=== PATIENT | male | born 1970 ===

== ENCOUNTER 2021-05-23 20:39 | Observation (INO) ==
[2021-05-23] MEDS ORDERED: PIPERACILL/TAZOBAC CONSULT ACTIVE PRN (21:56)
[2021-05-23] MEDS ORDERED: PIPERACILLIN/TAZOBACTAM 4.5 GM/120 ML BAG IV ONE (21:56)
--- NOTE | 2021-05-23 22:05 | Emergency Department Note ---
History of Present Illness General Chief complaint: Infection Stated complaint: INFECTION Time Seen by Provider: 05/23/21 21:44 History of Present Illness Maximum Pain Intensity: 9 50-year-old male presents to the ED with a chief complaint of rectal pain. He states that 3 to 4 months ago he was diagnosed with a abscess in that area. It spontaneously drained at some point. He states that initially they tried to drain it in the ED and were unable to do so. He then saw specialist a while later but before seeing the specialist it spontaneously ruptured. The patient states that he started having pain again today. He decided to stop to the ED on the way through the area. 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 He is currently traveling from [place] to [place]. Denies fevers, nausea vomiting or other complaints Past Med/Surg History Social History Smoking Status: Never smoker Preferred Language: Guyanese Review of Systems A total of 10 systems reviewed and were otherwise negative Physical Exam Vital Signs Vital Signs - 24 hr 05/23/21 20:49 05/23/21 23:59 05/24/21 00:58 Temperature 36.7 C Temperature Source Temporal Artery Scan Pulse Rate 120 H Pulse Rate [Right Radial] 89 90 Pulse Rhythm [Right Radial] Regular Regular Pulse Strength [Right Radial] Normal Normal Respiratory Rate 16 17 20 Respiratory Effort / Characteristics Non-Labored Non-Labored Spontaneous Non-Labored Spontaneous Respiratory Depth Normal Normal Normal Respiratory Pattern Regular Regular Regular Blood Pressure 145/87 H Blood Pressure [Right Arm] 127/76 134/73 Blood Pressure Mean 106 Blood Pressure Mean [Right Arm] 93 93 Blood Pressure Position Sitting Blood Pressure Position [Right Arm] Lying Lying Pulse Oximetry 97 97 97 Oxygen Delivery Method Room Air Room Air Room Air Sepsis Recent Fever Within 48 Hours No Sepsis New/Unexplained Change in Mental Status N/A Sepsis Action Taken by Nursing No Action Required CONSTITUTIONAL/VITAL SIGNS: Reviewed / noted above. GENERAL: Non-toxic in appearance. INTEGUMENTARY: Warm, dry, and [place]. HEAD: Normocephalic. EYES: without scleral icterus or trauma. ENT/OROPHARYNX: clear and moist. LYMPHADENOPATHY/NECK: Is supple without lymphadenopathy or meningismus. RESPIRATORY: Clear to auscultation bilaterally. No increased work of breathing. CARDIOVASCULAR: Regular rate and rhythm. GI/ABDOMEN: Soft and nontender. No organomegaly or pulsatile mass. EXTREMITIES: Warm and well perfused. BACK: No CVA tenderness. NEUROLOGICAL: Intact without focal deficits. PSYCHIATRIC: normal affect. MUSCULOSKELETAL: Normally developed with good muscle tone. RECTAL: The patient does have a small mass in the posterior rectal region. It does not appear to be full but seems slightly fluctuant as if there is a fluid- filled sac there. Subjectively tender on exam. Not erythematous. TRIAGE NURSING DOCUMENTATION REVIEWED. Course Administered Medications Discontinued Medications Piperacillin Sod/Tazobactam Sod (Zosyn) 4.5 gm in 120 mls @ 240 mls/hr IV NOW ONE Stop: 05/23/21 22:25 Last Infusion: 05/23/21 22:48 Dose: 0 mls/hr Documented by: [id number] Admin: 05/23/21 22:12 Dose: 240 mls/hr Documented by: [id number] Ioversol (Optiray 320 100ml) 93 ml IV ONCE ONE Stop: 05/23/21 23:17 Last Admin: 05/23/21 23:16 Dose: 93 ml Documented by: [id number] Ketorolac Tromethamine (Ketorolac 30 Mg/Ml Vial) 30 mg IV NOW STA Stop: 05/23/21 22:28 Last Admin: 05/23/21 23:04 Dose: 30 mg Documented by: [id number] Medical Decision Making Differential Diagnosis Cellulitis, abscess, MRSA infection, DVT, necrotizing fasciitis, dermatitis, drug eruption, allergic reaction, as well as other pathologies. Medical Records Attestation: I reviewed the patient's medical records. Home Medications Current Medication List: was personally reviewed by me Laboratory Data Attestation: I reviewed the patient's lab results. Result diagrams: 05/23/21 22:10 05/23/21 22:10 Lab Results 05/23/21 05/23/21 05/23/21 Range/Units 22:10 22:10 22:10 WBC 10.83 H (4.8-10.8) K/uL RBC 5.49 (4.7-6.1) M/uL Hgb 16.5 (14.0-18.0) g/dL Hct 46.2 (42-52) % MCV 84.2 (80-100) fL MCH 30.1 (25-34) pg MCHC 35.7 (32-36) g/dL RDW Std Deviation 39.4 (36.4-46.3) fL RDW Coeff of Damaris 13.0 (11.5-14.5) % Plt Count 180 (130-400) K/uL MPV 11.0 H (7.4-10.4) fL Immature Gran % (Auto) 0.3 % Neut % (Auto) 72.3 % Lymph % (Auto) 15.6 % [place] % (Auto) 10.9 % Eos % (Auto) 0.6 % Baso % (Auto) 0.3 % Neut # (Auto) 7.84 H (1.4-6.5) K/uL Lymph # (Auto) 1.69 (1.2-3.4) K/uL [place] # (Auto) 1.18 H (0.11-0.59) K/uL Eos # (Auto) 0.06 (0-0.5) K/uL Baso # (Auto) 0.03 (0-0.2) K/uL Immature Gran # (Auto) 0.03 H (0.00-0.02) K/uL ESR 45 H (0-15) mm/hr Sodium 136 (136-145) mmol/L Potassium 3.9 (3.5-5.1) mmol/L Chloride 104 (98-107) mmol/L Carbon Dioxide 26 (21-32) mmol/L Anion Gap 6.0 (3-11) BUN 23 H (7-18) mg/dl Creatinine 1.13 (0.6-1.4) mg/dl Est Cr Clr Drug Dosing Not Reportable Est GFR ( Amer) 88.0 ml/min Est GFR (Non-Af Amer) 75.9 ml/min BUN/Creatinine Ratio 20.6 H (10-20) Glucose 135 H (70-99) mg/dl Calcium 9.9 (8.5-10.1) mg/dl C-Reactive Protein 11.80 H (0-0.29) mg/dl COVID-19 Eval Order 05/24/21 Range/Units 00:49 WBC (4.8-10.8) K/uL RBC (4.7-6.1) M/uL Hgb (14.0-18.0) g/dL Hct (42-52) % MCV (80-100) fL MCH (25-34) pg MCHC (32-36) g/dL RDW Std Deviation (36.4-46.3) fL RDW Coeff of Damaris (11.5-14.5) % Plt Count (130-400) K/uL MPV (7.4-10.4) fL Immature Gran % (Auto) % Neut % (Auto) % Lymph % (Auto) % [place] % (Auto) % Eos % (Auto) % Baso % (Auto) % Neut # (Auto) (1.4-6.5) K/uL Lymph # (Auto) (1.2-3.4) K/uL [place] # (Auto) (0.11-0.59) K/uL Eos # (Auto) (0-0.5) K/uL Baso # (Auto) (0-0.2) K/uL Immature Gran # (Auto) (0.00-0.02) K/uL ESR (0-15) mm/hr Sodium (136-145) mmol/L Potassium (3.5-5.1) mmol/L Chloride (98-107) mmol/L Carbon Dioxide (21-32) mmol/L Anion Gap (3-11) BUN (7-18) mg/dl Creatinine (0.6-1.4) mg/dl Est Cr Clr Drug Dosing Est GFR ( Amer) ml/min Est GFR (Non-Af Amer) ml/min BUN/Creatinine Ratio (10-20) Glucose (70-99) mg/dl Calcium (8.5-10.1) mg/dl C-Reactive Protein (0-0.29) mg/dl COVID-19 Eval Order Covid19 at [facility] Imaging Data Radiologist's Impression: CT scan of the pelvis with IV contrast shows a abscess in the subcutaneous adipose tissue of the left gluteal crease at the 5 o'clock position with respect to the anus. MDM Narrative Patient presents with some pain near his rectum concerned about an abscess. Vit al signs reveal tachycardia and hypertension. 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 The patient's CBC and chemistry panel was unremarkable. CT scan does show an abscess. Sed rate and CRP are elevated. The surgery service was consulted. They are going to take the patient to the OR tomorrow for drainage. Impression & Plan Rosalie-rectal abscess Discharge Plan Visit Data Chief Complaint: Infection Stated Complaint: INFECTION ED Provider: Kenneth Horta Discharge Problem: Rosalie-rectal abscess Patient Disposition: Being Evaluated by Surgeon Forms Stand Alone Forms: [facility] Referrals Referrals: PCP,NO [Primary Care Provider] -
[2021-05-23 22:27] LABS: Basophils # (auto) 0.03 K/uL (0-0.2); Basophils % (auto) 0.3 %; Eosinophils # (auto) 0.06 K/uL (0-0.5); Eosinophils % (auto) 0.6 %; Hematocrit (blood only) 46.2 % (42-52); Hemoglobin 16.5 g/dL (14.0-18.0); Immature Granulocytes # (auto) 0.03 K/uL (0.00-0.02); Immature Granulocytes % (auto) 0.3 %; Lymphocytes # (auto) 1.69 K/uL (1.2-3.4); Lymphocytes % (auto) 15.6 %; Mean Corpuscular Hemoglobin 30.1 pg (25-34); Mean Corpuscular Hgb Conc 35.7 g/dL (32-36); Mean Corpuscular Volume 84.2 fL (80-100); Monocytes # (auto) 1.18 K/uL (0.11-0.59); Monocytes % (auto) 10.9 %; Neutrophils # (auto) 7.84 K/uL (1.4-6.5); Neutrophils % (auto) 72.3 %; Platelet Count 180 K/uL (130-400); RDW Standard Deviation 39.4 fL (36.4-46.3); Red Blood Count 5.49 M/uL (4.7-6.1); White Blood Count 10.83 K/uL (4.8-10.8)
[2021-05-23] MEDS ORDERED: KETOROLAC 30 MG/ML VIAL IV STA (22:27)
[2021-05-23 22:43] LABS: BUN Creatinine Ratio 20.6 (10-20); Blood Urea Nitrogen 23 mg/dl (7-18); Calcium 9.9 mg/dl (8.5-10.1); Carbon Dioxide 26 mmol/L (21-32); Chloride 104 mmol/L (98-107); Est GFR (Non-African American) 75.9 ml/min; Glucose 135 mg/dl (70-99); Potassium 3.9 mmol/L (3.5-5.1); Sodium 136 mmol/L (136-145)
[2021-05-23] MEDS ORDERED: OPTIRAY 320 100ml IV ONE (23:16)
--- NOTE | 2021-05-24 00:52 | History & Physical Report ---
Date of Service May 24, 2021 Assessment & Plan (1) Perirectal abscess: Plan: Patient will be admitted to the hospital proceeding as follows: We will make the patient n.p.o. Provide analgesics Provide antiemetics Hydration with IV fluids We will continue antibiotics in the form of Zosyn As the patient has had a previous perirectal abscess with attempted bedside drainage I feel it is prudent to proceed with a more formal drainage in the operating room where we can provide the patient with sedation and local anesthesia. We will proceed with this in the morning. The patient is agreeable to this. As we are planning on taking patient to the operating room we will check a baseline chest x-ray as well as a baseline EKG. 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 emergency department. Patient relates that back in January of this year he experienced similar pain and he presented to the hospital along a truck route that he forgets the name of. He says that there was an attempted incision and drainage of a perirectal abscess at bedside which was unsuccessful. He notes that the perirectal abscess causing pain ultimately "ruptured" and drained on its own and the patient had significant relief of his presenting symptoms at that time. 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 He does not note any palliative factors other than lying still and he does not note any radiation of the pain. He denies any fevers, shakes, chills. Because of his previous history of perirectal abscess he presented to the nearest emergency department And to be [facility] along his truck route. In the emergency department the patient did have labs and imaging which I independently reviewed. Patient was noted to have a thick-walled enhancing fluid collection with an air-fluid level in the left gluteal crease around the 5 o'clock position that was felt to be compatible with an abscess. There is no intrapelvic or intra-abdominal abscess noted. Patient also had a CBC where his white blood cell count of slight elevation at 10.8. His hemoglobin, hematocrit, and platelet count are all within normal range. Chemistry profile did show sodium, potassium, and creatinine were within normal range. An erythrocyte sedimentation rate was elevated at 45 and a C-reactive protein was elevated at 11.8. Patient says that his only medical history consists of diabetes which he says is well controlled. He says that in addition to driving his truck he is quite active when he is feeling well and he does not get any chest pain or shortness of breath with his activities of daily living. He does note a history of smoking. At the time of my interview he was resting comfortably in bed and he was not in any distress. Allergies Allergy/AdvReac Type Severity Reaction Status Date / Time No Known Allergies Allergy Unverified 05/24/21 02:48 Past Med/Surg History Medical History (Updated 05/24/21 @ 06:42 by Stanley Vang MD) Diabetes Social History Smoking Status: Current every day smoker Do You Dip or Chew Tobacco: No; Tobacco Cessation Education Requested by Patient: No Hx Alcohol Use: No Hx Substance Use: No Preferred Language: Thai Communication Ability: Effective Pot Firer Required: No Beliefs That Will Affect Care: None Current Living Situation: Family Other Information That Helps Us Care for You: No Feels Safe at Home: Yes Safety Concerns: Feels Safe At This Time Assistive Devices: None Past Medical History PMFSH Narrative: Past medical history: Perirectal abscess Diabetes Past surgical history: Attempted drainage of perirectal abscess at bedside Family history: He does not note family history of premature coronary artery disease Social history: The patient says he is an occasional smoker Review of Systems Constitutional: no fever and no chills Eyes: no diplopia Ear, Nose, Mouth, Throat: no ear pain and no sore throat Respiratory: no cough and no dyspnea Cardiovascular: no chest pain Gastrointestinal: as per Subjective / HPI; no abdominal pain, no diarrhea/loose stools and no blood in stools Genitourinary: no dysuria Musculoskeletal: no back pain Integumentary: no rash Neurologic: no localized weakness Physical Exam Constitutional: well developed and well nourished; no acute distress Eyes: PERRL, conjunctivae normal, anicteric sclerae ENMT: external ear and nose normal, oropharynx normal Neck: trachea midline Respiratory: normal respiratory effort; no respiratory distress and no labored breathing Cardiovascular: Rate/Rhythm: regular rate and regular rhythm Gastrointestinal (Abdomen): Abdomen is soft, nontender and nondistended. Patient's rectum was examined. Patient did have a tender area just lateral to the rectum at approximately the 5 o'clock position. This area had some fluctuance noted to and was tender to palpation. There is no drainage or open areas. The area was not warm but did exhibit some slight erythema. Musculoskeletal: No gross orthopedic abnormalities, no calf tenderness Skin: no rashes Neurologic: moves all extremities Psychiatric: A+Ox3, euthymic affect Results & Data Results & Data ([facility]) Vital Signs (Past 12 Hours) Vital Signs Temp Pulse Pulse Resp BP BP Pulse Ox 05/23/21 23:59 89 17 127/76 97 05/23/21 20:49 36.7 C 120 H 16 145/87 H 97 Code Status & VTE Plan VTE Prophylaxis Plan VTE Prophylaxis will be ordered: Yes PG Care Time/CCT Total # of Minutes Spent Total Time Spent with Patient: Total time spent is greater than 50% in coordination of care (as documented) at patient's floor/unit and/or counseling patient: Coding Level of Care Code INT OBSERVATION CARE 70M LVL 3 Diagnoses Perirectal abscess K61.1
[2021-05-24] MEDS ORDERED: PIPERACILL/TAZOBAC CONSULT ACTIVE PRN (02:51)
[2021-05-24] MEDS ORDERED: ONDANSETRON INJ 2 MG/ML 2 ML VIAL IV PRN ×2 (02:51→07:15)
[2021-05-24] MEDS ORDERED: MoRPHine SULFATE 2 MG/ML CARP IV PRN (02:51)
[2021-05-24] MEDS ORDERED: ACETAMINOPHEN 1,000 MG/100 ML VIAL IV PRN (02:51)
[2021-05-24] MEDS: LACTATED RINGER'S 1,000 ML IV SCH ×2 (04:01→12:54)
[2021-05-24] MEDS: PIPERACILLIN/TAZOBACTAM 3.375 GM in DEXTROSE 5% 100 ML IV SCH ×3 (04:16→21:00)
--- NOTE | 2021-05-24 06:07 | Surgery Progress Note ---
Date of Service May 24, 2021 Assessment & Plan (1) Rosalie-rectal abscess: Plan: Patient has been admitted on the surgical service proceeding as follows: Continue n.p.o. status Continue antibiotics in the form of Zosyn Continue analgesics Continue antiemetics Continue gentle hydration with IV fluids We are planning on incision and drainage of the perirectal abscess in the operating room later today. Additional recommendations concerning his abscess will be based on his operative findings Patient has had a preoperative chest x-ray that shows no evidence of pneumonia The patient has had a preoperative EKG that shows normal sinus rhythm without any acute ischemic changes A Covid test has been performed and is noted to be negative SCDs will be used for DVT prevention, we will avoid chemical means due to upcoming surgery Additional recommendations were made based on operative findings as well as the patient's clinical course as it unfolds as above. had similar incident in January. discussed options. will proceed this AM with I&D of perirectal abcess. questions answered. Admission and Anticipated Discharge Date Admission Date: May 24, 2021 Subjective Patient is resting in bed. He denies any fevers, shakes, chills. He does note continued rectal pain similar to what he noted at time of admission. Results & Data ([facility]) Vital Signs (Past 12 Hours) Vital Signs Temp Pulse Pulse Resp BP BP Pulse Ox 05/24/21 02:35 36.4 C L 88 18 137/85 97 05/24/21 02:20 78 17 135/79 98 05/24/21 00:58 90 20 134/73 97 05/23/21 23:59 89 17 127/76 97 05/23/21 20:49 36.7 C 120 H 16 145/87 H 97 PG Care Time/CCT Total # of Minutes Spent Total Time Spent with Patient: Total time spent is greater than 50% in coordination of care (as documented) at patient's floor/unit and/or counseling patient: Coding Level of Care Code 17612 Subseq Obs Care Lvl 2 Diagnoses Rosalie-rectal abscess K61.1
--- NOTE | 2021-05-24 06:41 | Anesthesiology Consultation ---
Date of Service May 24, 2021 Assessment & Plan (1) Encounter for pre-operative examination: Chart Review Chart Review: Acceptable Risk for Surgery and Patient NOT seen in Pre Admission Testing covid neg 05/24/21 Consults Requested none ASA ASA2 Proposed Anesthesia Anesthesia Type: General Risk / Benefits Reviewed With: PT / POA / Parent / Guardian, Accepts Plan and Informed Consent Obtained History Surgery Operation Date: 05/24/21 10:00 Proposed Procedures p Incision and Drainage General - Leon Odonnell DO Height/Weight Height: 5 ft 10 in Weight: 104 kg Allergies Allergy/AdvReac Type Severity Reaction Status Date / Time No Known Allergies Allergy Unverified 05/24/21 02:48 Medications Active Medications Generic Name Dose Route Start Last Admin Trade Name Freq PRN Reason Stop Dose Admin Piperacillin Sod/Tazobactam 115 mls @ 28.75 mls/hr 05/24/21 04:00 05/24/21 08:02 Sod 3.375 gm/ Dextrose IV 06/03/21 03:59 Infused Q8H MARIANA Infusion Protocol Lactated Ringer's 1,000 mls @ 75 mls/hr 05/24/21 02:51 05/24/21 04:01 Lr IV 06/23/21 02:50 75 mls/hr .[id number] MARIANA Administration Morphine Sulfate 2 mg 05/24/21 02:51 05/24/21 05:38 Morphine Sulfate 2 Mg/Ml Carp IV 06/07/21 02:50 2 mg Q3H PRN Administration Pain NPO Date Last Intake of Fluids: 05/24/21 Time Last Intake of Fluids: 00:00 Date Last Intake of Solids: 05/24/21 Time Last Intake of Solids: 00:00 Past Medical History Medical History Diabetes Exercise / Class Metabolic Activity II 4-5 Yardwork/Stairs/Walk up hill Past Anesthesia History No Hx of Anesthesia Complications and No Family Hx of Anesthesia Complications History of PONV No Hx of PONV and No Hx of Motion Sickness Social History Smoking Status: Current every day smoker tobacco type: cigarettes Do You Dip or Chew Tobacco: No Hx Alcohol Use: No Hx Substance Use: No Physical Exam Vital Signs Last Vital Signs Temp 98.4 F 05/24/21 07:25 Pulse 90 05/24/21 07:25 Resp 18 08/28/21 07:25 BP 150/90 H 05/24/21 07:25 Pulse Ox 97 05/24/21 07:25 ENMT Mouth: no dentition abnormality Thyromental Distance: > or= 3.5 Finger Breadths Mallampati Class: II Neck normal visual inspection Respiratory normal respiratory effort Auscultation: lungs clear to auscultation bilaterally Cardiovascular Rate/Rhythm: regular rate and regular rhythm Testing Laboratory Results 05/23/21 22:10 05/23/21 22:10 Electrocardiogram Date: 05/24/21 Findings: + NSR @ (86) Normal sinus rhythm Normal ECG No previous ECGs available
[2021-05-24] MEDS ORDERED: fentaNYL citrate 100 MCG/2 ML VIAL IV PRN (07:15)
[2021-05-24] MEDS ORDERED: ATROPINE SULFATE 0.1 MG/ML 10ML SYR IV PRN (07:15)
[2021-05-24] MEDS ORDERED: ePHEDrine sulfate 50 MG/ML AMP IV PRN (07:15)
--- NOTE | 2021-05-24 08:05 | CT Scan Report ---
CT SCAN OF THE PELVIS WITH IV CONTRAST CLINICAL HISTORY: Perianal abscess. COMPARISON STUDY: No priors. TECHNIQUE: Following the IV administration of 93 cc of Optiray 320, CT scan of the pelvis is performe d from the pelvic inlet to the proximal femora. Images are reviewed in the axial, sagittal, and coron al planes. IV contrast was administered without complication. A dose lowering technique was utilized adhering to the principles of ALARA. CT DOSE: 1004.88 mGy.cm FINDINGS: The bladder, prostate, and seminal vesicles are normal as visualized. No pelvic sidewall or inguinal adenopathy is identified. The visualized loops of small bowel and colon are normal in caliber. There is no evidence of obstruction. A normal appendix is identified. The iliac vessels are patent noting m ild but age advanced atherosclerotic calcification. There is a thick walled left perianal gas and flu id containing collection, best seen on axial image #125. This is at the 4:00 to 6:00 position and levar sures 2.8 x 4.3 x 2.1 cm. This is consistent with an abscess, and some of the fluid may be contained within a perianal fistulous tract as this collection extends posteriorly along the gluteal crease. Th ere is significant surrounding soft tissue inflammation and overlying dermal thickening consistent wi th cellulitis. This is located below the levator musculature. The bony pelvis is intact. No lytic or blastic lesion is seen. The regional musculature is normal and symmetric. IMPRESSION: 1. Large left perianal abscess as detailed above with evidence of surrounding cellulitis. 2. Some of the fluid may be contained within a fistulous tract, as the collection extends posteriorly along the gluteal crease and closely approximates the dermal surface. 3. The pelvic viscera is normal as imaged. ACT 112: Negative or not required by law. Electronically signed by: Adam Cárdenas M.D. 05/24/2021 8:03 AM
[2021-05-24] MEDS ORDERED: MIDAZOLAM HCL 1 MG/ML 2ML VIAL ONE (08:06)
[2021-05-24] MEDS ORDERED: fentaNYL citrate 100 MCG/2 ML VIAL ONE (08:06)
[2021-05-24] MEDS ORDERED: PROPOFOL IV EMULSION 10 MG/ML 20 ML VIAL IV ONE (08:52)
[2021-05-24] MEDS ORDERED: DEXAMETHASONE SOD INJ 4 MG/ML VIAL ONE (08:52)
[2021-05-24] MEDS ORDERED: LIDOCAINE 2% 2 ML VIAL/AMP(20MG/ML) INFIL ONE (08:52)
[2021-05-24] MEDS ORDERED: ONDANSETRON INJ 2 MG/ML 2 ML VIAL ONE (08:52)
--- NOTE | 2021-05-24 09:07 | XRay Report ---
XR chest 1V portable HISTORY: Perianal abscess. pre-op COMPARISON: None. FINDINGS: The lungs are clear. Cardiac silhouette is normal in size. No pleural effusions. No pneumot horax. IMPRESSION: No acute process. ACT 112: Negative or not required by law. Electronically signed by: Trey Bruno M.D. 05/24/2021 9:06 AM
[2021-05-24] MEDS ORDERED: KETOROLAC 30 MG/ML VIAL ONE (09:25)
--- NOTE | 2021-05-24 09:43 | Operative Report ---
PG Post Operative Report Pre & Post Diagnosis Operation Date: 05/24/21 10:00 Pre-Op Diagnosis: JAYE-RECTAL ABSCESS Post-Op Diagnosis: JAYE-RECTAL ABSCESS I identified the patient and participated in the time-out.: Yes Procedure Operation Date: 05/24/21 10:00 Actual Procedures p Incision and Drainage Jaye-Rectal Abscess(Not Applicable) - Leon Odonnell DO Surgeon Leon Odonnell DO Pump And Blower Operator n/a Estimated Blood Loss 10 Findings Consistent with Post-Op Diagnosis Specimens abcess fluid for culture Description of Procedure After informed consent was obtained the patient was taken to the operating room and placed in supine position. After successful placement of laryngeal mask airway the patient was placed in a high lithotomy position. The perianal area and perineum were all sterilely prepped and draped with a Betadine solution. A 15 blade scalpel was then used to make an incision directly over the visible and palpable abscess. Immediately a large amount of purulent foul-smelling fluid was encountered. I was able to manually express this. A specimen was collected and sent for Gram stain culture and sensitivity. It was then thoroughly irrigated. I placed 1/2 inch Pio drain into the cavity and secured it to the skin using 2-0 Prolene. Sterile dressing was applied. The patient was placed back in the supine position extubated and transferred recovery in stable condition. I attest to the content of the Intraoperative Record and any orders documented therein. Any exceptions are noted below.
--- NOTE | 2021-05-24 10:31 | Anesthesiology Progress Note ---
Date of Service May 24, 2021 Anesthesia Post Procedure Vital Signs Vital Signs: Temp Pulse Pulse Pulse Resp BP BP 05/24/21 10:15 98.6 F 81 18 125/72 05/24/21 10:05 81 15 115/72 05/24/21 09:55 84 16 114/70 05/24/21 09:45 71 17 95/62 L 05/24/21 09:37 99.1 F 67 16 95/62 L 05/24/21 07:25 98.4 F 90 18 150/90 H 05/24/21 02:35 97.5 F L 88 18 137/85 05/24/21 02:20 78 17 135/79 05/24/21 00:58 90 20 134/73 05/23/21 23:59 89 17 127/76 05/23/21 20:49 98.1 F 120 H 16 145/87 H Pulse Ox 05/24/21 10:15 95 05/24/21 10:05 99 05/24/21 09:55 99 05/24/21 09:45 98 05/24/21 09:37 97 05/24/21 07:25 97 05/24/21 02:35 97 05/24/21 02:20 98 05/24/21 00:58 97 05/23/21 23:59 97 05/23/21 20:49 97 Pain Intensity Medial Rectal: Pain Intensity: 0 Transfer of Care Handoff Completed per policy Notes Mental Status: alert / awake / arousable and participated in evaluation Patient Amnestic to Procedure: Yes Nausea / Vomiting: adequately controlled Pain: adequately controlled Airway Patency, RR, SpO2: stable & adequate BP & HR: stable & adequate Hydration State: stable & adequate Anesthetic Complications: no major complications apparent and Pt Satisfied with anesthetic care
[2021-05-24] MEDS ORDERED: oxyCODONE HCL IR 5 MG TAB (IMMEDIATE RELEASE) PO PRN (10:37)
[2021-05-24 13:24] LABS: Estimated Average Glucose 137 mg/dl; Hemoglobin A1C 6.4 % (4.5-5.6)
--- NOTE | 2021-05-24 14:36 | Hospitalist Consultation ---
Date of Consultation May 24, 2021 Assessment & Plan (1) Diabetes: (2) Rosalie-rectal abscess: 50 y/o M Hx DM II only, admitted by surgery for I&D of a rectal abscess. He has no complaints post-op. A medical consult is requested as the pt is diabetic. On review of records, a recent A1C was 6.4, and his blood glucose has ranged between 130-150 indicating excellent control on Metformin only. 1) DM II - As the pt's glucose is well-controlled, no further management is needed. He should resume his Metformin and an appropriate diet. 2) He is well aware that he should stop smoking. The medical service will now sign off. 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 Total time for this consult including review of surgery notes, labs, meds, imaging, records - discussion/exam with pt - 28 min History of Present Illness Reason for Consultation: Diabetes? Requesting Physician: Blas Attending Physician: Leon Odonnell DO History of Present Illness 50 y/o M Hx DM II only, admitted by surgery for I&D of a rectal abscess. He has no complaints post-op. A medical consult is requested as the pt is diabetic. On review of records, a recent A1C was 6.4, and his blood glucose has ranged between 130-150 indicating excellent control on Metformin only. 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 Family: Mother COVID-19 Father - [place] Allergies Allergy/AdvReac Type Severity Reaction Status Date / Time No Known Allergies Allergy Unverified 05/24/21 02:48 Patient History Medical History Diabetes Social History Smoking Status: Current every day smoker Do You Dip or Chew Tobacco: No; Tobacco Cessation Education Requested by Patient: No Hx Alcohol Use: No Hx Substance Use: No Preferred Language: American Communication Ability: Effective Dye Feeder Required: No Beliefs That Will Affect Care: None Current Living Situation: Family Other Information That Helps Us Care for You: No Feels Safe at Home: Yes Safety Concerns: Feels Safe At This Time Assistive Devices: None Review of Systems Review of Systems: Gen: Denies fevers, night sweats, rigors, fatigue, malaise, weight loss/gain ENT: Denies congestion, throat pain, hearing loss Eyes: Denies acute visual changes CV: Denies CP, palpitations Pulmonary: Denies SOB, cough, wheezing GI: Denies N/V, diarrhea, constipation. He has rectal itching but no pain at the surgical site. Neuro: Denies acute or unilateral weakness, acute gait impairment, headache or acute visual changes Musculoskeletal: Denies joint pain, inflammation Endocrine: Denies polydipsia, polyuria Skin: Denies acute rashes or ulcers Physical Exam Physical Exam: General: AAO x 3, no distress ENT: No erythema or exudates, no thrush Eyes: YOGESH, EOMI Head and neck: Normocephalic, atraumatic, No JVD, neck is supple. Chest/heart: Nontender, S1,2, RRR, no murmurs, no gallops Lungs: CTAB, no wheezing or crackles Abdomen: Nontender, nondistended, BS+ Neuro: AAO x 3, speech is clear, no unilateral weakness or loss of sensation, coordination intact Musculoskeletal: No joint inflammation, muscle tenderness, FROM Skin: No acute rashes or ulcers Extremities: No clubbing, cyanosis, edema Results & Data Results & Data ([facility]) Vital Signs (Past 12 Hours) Vital Signs Temp Pulse Pulse Resp BP BP Pulse Ox 05/24/21 12:28 98.1 F 84 18 125/74 95 05/24/21 11:29 98.6 F 85 18 121/74 96 05/24/21 10:59 98.6 F 75 16 117/71 94 05/24/21 10:30 98.2 F 78 16 121/76 95 05/24/21 10:15 98.6 F 81 18 125/72 95 05/24/21 10:05 81 15 115/72 99 05/24/21 09:55 84 16 114/70 99 05/24/21 09:45 71 17 95/62 L 98 05/24/21 09:37 99.1 F 67 16 95/62 L 97 05/24/21 07:25 98.4 F 90 18 150/90 H 97 05/24/21 02:35 97.5 F L 88 18 137/85 97 PG Care Time/CCT Total # of Minutes Spent Total Time Spent with Patient: Total time spent is greater than 50% in coordination of care (as documented) at patient's floor/unit and/or counseling patient: Coding Level of Care Code 24287 Inpt Consult Level 3 Diagnoses Diabetes E11.9 Rosalie-rectal abscess K61.1
[2021-05-25] MEDS: LACTATED RINGER'S 1,000 ML IV SCH (01:23)
[2021-05-25] MEDS: PIPERACILLIN/TAZOBACTAM 3.375 GM in DEXTROSE 5% 100 ML IV SCH (04:06)
--- NOTE | 2021-05-25 06:10 | Surgery Progress Note ---
Date of Service May 25, 2021 Assessment & Plan (1) Rosalie-rectal abscess: Plan: Postoperative day #1 incision and drainage of perirectal abscess Operative Gram stain shows gram-negative and gram-positive cocci along with gram negative and gram-positive bacilli. Continue antibiotics in the form of Zosyn. We will plan on transitioning to oral antibiotics at time of discharge The patient has a Pio drain in place to allow continued drainage. feeling "95% better"...insisting on going home. will d/c on bactrim DS. wound care instructions given. must follow up with pcp for drain removal as soon as he gets back home to [place]. ibuprofen or tylenol for any discomfort. ok for d/c Admission and Anticipated Discharge Date Admission Date: May 24, 2021 Subjective Patient is resting comfortably in bed. He denies any fevers, shakes, chills. He denies any nausea or vomiting. He denies any abdominal pain. Patient notes the rectal pain that caused his admission has markedly improved since his surgical procedure. Results & Data ([facility]) Vital Signs (Past 12 Hours) Vital Signs Temp Pulse Resp BP Pulse Ox 05/25/21 03:18 36.8 C 82 18 158/92 H 97 05/24/21 22:20 36.8 C 83 18 137/82 96 05/24/21 19:25 36.6 C 71 18 144/80 H 98 PG Care Time/CCT Total # of Minutes Spent Total Time Spent with Patient: Total time spent is greater than 50% in coordination of care (as documented) at patient's floor/unit and/or counseling patient: Coding Level of Care Code None Diagnoses Rosalie-rectal abscess K61.1
[2021-05-25 06:50] LABS: Basophils # (auto) 0.01 K/uL (0-0.2); Basophils % (auto) 0.1 %; Eosinophils # (auto) 0.08 K/uL (0-0.5); Eosinophils % (auto) 1.1 %; Hematocrit (blood only) 41.8 % (42-52); Hemoglobin 14.7 g/dL (14.0-18.0); Immature Granulocytes # (auto) 0.03 K/uL (0.00-0.02); Immature Granulocytes % (auto) 0.4 %; Lymphocytes # (auto) 2.19 K/uL (1.2-3.4); Mean Corpuscular Hemoglobin 29.3 pg (25-34); Mean Corpuscular Hgb Conc 35.2 g/dL (32-36); Mean Corpuscular Volume 83.4 fL (80-100); Mean Platelet Volume 10.7 fL (7.4-10.4); Monocytes # (auto) 0.69 K/uL (0.11-0.59); Monocytes % (auto) 9.2 %; Neutrophils # (auto) 4.54 K/uL (1.4-6.5); Neutrophils % (auto) 60.2 %; Platelet Count 167 K/uL (130-400); RDW Coefficient of Variation 12.6 % (11.5-14.5); RDW Standard Deviation 38.2 fL (36.4-46.3); Red Blood Count 5.01 M/uL (4.7-6.1); White Blood Count 7.54 K/uL (4.8-10.8)
[2021-05-25 07:15] LABS: Creatinine Clr Calc Pharmacy 116.1 ml/min; Est GFR (African American) 111.3 ml/min; Est GFR (Non-African American) 96.1 ml/min
[2021-05-25 07:27] VITALS: BP 142/85; PULSE 85; TEMP 97.7; O2SAT 96
--- NOTE | 2021-05-25 07:44 | Electrocardiogram Report ---
Test Reason : Blood Pressure : / mmHG Vent. Rate : 086 BPM Atrial Rate : 086 BPM P-R Int : 146 ms QRS Dur : 096 ms QT Int : 344 ms P-R-T Axes : 051 -14 047 degrees QTc Int : 411 ms Normal sinus rhythm Normal ECG No previous ECGs available Confirmed by Albert Hackett ([id number]) on 05/25/2021 7:43:39 AM Referred By: REFERRED SELF Confirmed By:Albert Hackett
== END 2021-05-25 11:38 | disposition home or self-care (01) ==
LOC: ED 20:39 → 3N 20:39
DX: E11.9 Type 2 diabetes mellitus without complications; F17.210 Nicotine dependence, cigarettes, uncomplicated; K61.1 Rectal abscess